=== PATIENT | female | born 1975 | race African-American/Black ===

== ENCOUNTER → 2018-12-09 | Outpatient (CLI) | payer MEDICAID ==
[~2018-12-09] VITALS: Ht 162.6 cm; Wt 101.2 kg
[~2018-12-09] MED LIST: BISACODYL5 MG ORAL; CALCIUM500 M2 PO; COLACE100 MG ORAL; MULTIVITAMINS1 EAC2 ORAL; VITAMIN B122500 MCG PO; VITAMIN D400 INTLU ORAL
[2018-12-09 13:43] VITALS: BP 108/73
--- NOTE | 2018-12-09 19:30 | Consultation ---
DATE OF CONSULTATION: 12/09/2018 CHIEF COMPLAINT: Constipation. HISTORY OF PRESENT ILLNESS: This is a 43-year-old female with numerous medical problems including history of morbid obesity, status post gastric sleeve surgery with 100 pounds of weight loss. Sleeve was done in 2017. The patient was sent to our office for evaluation of constipation. According to her, she has been constipated for 5 years. If she does not take any laxatives, she does not go to the bathroom for 10 days. She is complaining of gas, bloating, abdominal distention, severe constipation. PAST MEDICAL HISTORY: 1. History of kidney stones. 2. GERD. 3. Anemia. 4. Uterine fibroids. 5. Gallstones. 6. Morbid obesity. 7. Constipation. PAST SURGICAL HISTORY: 1. Hysterectomy. 2. Cholecystectomy. 3. Gastric sleeve surgery. MEDICATIONS: Please see medication reconciliation list. FAMILY HISTORY: Noncontributory. SOCIAL HISTORY: The patient denies any tobacco, alcohol, or IV drug abuse. ALLERGIES: No known drug allergies. REVIEW OF SYSTEMS: Ten-point review of systems was performed and pertinent positives in HPI. PHYSICAL EXAMINATION: VITAL SIGNS: Temperature 98, blood pressure 108/74, pulse 67, and respirations 20. HEENT: Normocephalic and atraumatic. Sclerae anicteric. NECK: Supple. No evidence of obvious lymphadenopathy. CARDIOVASCULAR: Regular rate and rhythm. Plus S1 and S2. No obvious murmur. LUNGS: Clear to auscultation bilaterally. ABDOMEN: Positive bowel sounds. Soft and nontender. No rebound. No guarding. No peritoneal sign. EXTREMITIES: No cyanosis. No clubbing. No edema. ASSESSMENT AND PLAN: This is a 43-year-old female with history of morbid obesity, status post sleeve gastrectomy, now with complaint of constipation for 5 years most probably chronic. The patient did not respond according to her to [id number] medication. Unfortunately, we cannot start her on Linzess because her insurance would not cover it. Our plan will be to give her a combination of four medications including Colace 100 mg p.o. b.i.d., MiraLAX 17 g p.o. daily, Dulcolax 10 mg p.o. daily, and lactulose 30 mL p.o. b.i.d. The patient was also given samples of Linzess 145. The patient was told to take these medications before, the medications that I initially dictated, for a month religiously and if that does not work, try the Linzess and if that works, we will try to get authorization from the insurance for Linzess. The patient to come back in a month for followup. Portillo Morfin M.D. DR: Duncan JOB#: [id number] CC:
== END | disposition home or self-care (01) ==
LOC: PAN 10:18
DX: K59.00 Constipation, unspecified (principal); K21.9 Gastro-esophageal reflux disease without esophagitis; Z87.442 Personal history of urinary calculi; Z90.710 Acquired absence of both cervix and uterus; Z90.49 Acquired absence of other specified parts of digestive tract; Z98.84 Bariatric surgery status; R14.0 Abdominal distension (gaseous)

== ENCOUNTER 2019-02-02 12:26 | Outpatient (CLI) | payer MEDICAID ==
--- NOTE | 2019-02-02 13:19 | General Progress Note ---
Assessment/Plan Assessment/Plan: 1. History of kidney stones. 2. GERD. 3. Anemia. 4. Uterine fibroids. 5. Gallstones. 6. Morbid obesity. 7. Constipation. linzess 145 lactulose RTC prn Subjective ROS Limited/Unobtainable: No Allergies: Coded Allergies: No Known Allergies (Unverified , 12/09/18) Objective General Appearance: alert EENT: normal ENT inspection Neck: supple Cardiovascular: normal rate Respiratory/Chest: lungs clear Abdomen: normal bowel sounds, non tender, soft Extremities: non-tender Portillo Morfin MD Feb 02, 2019 13:19
== END 2019-02-02 16:02 | disposition home or self-care (01) ==
LOC: PAN 12:26
DX: K21.9 Gastro-esophageal reflux disease without esophagitis (principal); Z87.442 Personal history of urinary calculi; D64.9 Anemia, unspecified; D25.9 Leiomyoma of uterus, unspecified; K80.80 Other cholelithiasis without obstruction; E66.01 Morbid (severe) obesity due to excess calories; K59.00 Constipation, unspecified

== ENCOUNTER 2019-05-12 09:57 | Outpatient (CLI) | payer MEDICAID ==
--- NOTE | 2019-05-12 10:27 | General Progress Note ---
Assessment/Plan Assessment/Plan: 1. History of kidney stones. 2. GERD. 3. Anemia. 4. Uterine fibroids. 5. Gallstones. 6. Morbid obesity. 7. Constipation. linzess 290 add Motegrity colonoscpy reviewed lactulose RTC prn Subjective ROS Limited/Unobtainable: Yes Allergies: Coded Allergies: No Known Allergies (Unverified , 12/09/18) Objective General Appearance: alert EENT: normal ENT inspection Neck: supple Cardiovascular: normal rate Respiratory/Chest: decreased breath sounds Abdomen: normal bowel sounds, non tender, soft Extremities: non-tender Portillo Morfin MD May 12, 2019 10:27
[2019-05-12 10:33] VITALS: BP 110/72
[2019-05-12] MEDS ORDERED: LINZESS145 MCG PO (10:38)
[2019-05-12] MEDS ORDERED: MIRALAX17 G2 ORAL (10:38)
[2019-05-12] MEDS ORDERED: LACTULOSE20 GM/301 ORAL (10:38)
== END 2019-05-12 15:49 | disposition home or self-care (01) ==
LOC: PAN 09:57
DX: K21.9 Gastro-esophageal reflux disease without esophagitis (principal); D64.9 Anemia, unspecified; D25.9 Leiomyoma of uterus, unspecified; Z87.442 Personal history of urinary calculi; K80.80 Other cholelithiasis without obstruction; E66.01 Morbid (severe) obesity due to excess calories
CPT/HCPCS: 99212